=== PATIENT | female | born 1995 | race American Indian/Alaskan Native ===

== ENCOUNTER 2022-05-11 23:45 | Emergency (ER) | payer SELFPAY ==
--- NOTE | 2022-05-12 04:39 | Emergency Department Report ---
ED General Adult HPI - General Chief complaint: Back Pain/Injury Stated complaint: LUNG PAIN/TROUBLE BREATHING Time Seen by Provider: 05/12/22 03:59 Source: patient Mode of arrival: Ambulatory Limitations: No Limitations - History of Present Illness Initial comments: 26-year-old female presents emerged department complaining of a few day history of pain to the back when she takes a deep breath. Reports no trauma, no fever, chills, sweats. No hemoptysis no hematemesis hematochezia Ventricular female asthma department complaining of pain to the back when she takes a deep breath is been present for the last few days. Ports no fever, chills, sweats. No hemoptysis no hematemesis hematochezia -: Gradual Radiation: non-radiation Quality: dull Consistency: constant Associated Symptoms: denies other symptoms. denies: diaphoresis, fever/chills, headaches, malaise, nausea/vomiting, rash, shortness of breath - Related Data Previous Rx's Medication Instructions Recorded Last Taken Type Ketorolac [Toradol] 10 mg PO Q6H PRN #15 tablet 05/12/22 Unknown Rx Allergies Allergy/AdvReac Type Severity Reaction Status Date / Time No Known Allergies Allergy Unverified 05/12/22 00:15 ED Review of Systems ROS: Stated complaint: LUNG PAIN/TROUBLE BREATHING Other details as noted in HPI Comment: All other systems reviewed and negative ED Past Medical Hx - Medications Home Medications: Home Medications Medication Instructions Recorded Confirmed Last Taken Type Ketorolac [Toradol] 10 mg PO Q6H PRN #15 tablet 05/12/22 Unknown Rx ED Physical Exam - General Limitations: No Limitations General appearance: alert, in no apparent distress - Head Head exam: Present: atraumatic, normocephalic - Eye Eye exam: Present: normal appearance, PERRL Pupils: Present: normal accommodation - ENT ENT exam: Present: normal exam, mucous membranes moist - Neck Neck exam: Present: normal inspection, full ROM - Respiratory Respiratory exam: Present: normal lung sounds bilaterally. Absent: respiratory distress, wheezes, rales, rhonchi - Cardiovascular Cardiovascular Exam: Present: regular rate, normal rhythm. Absent: systolic murmur, diastolic murmur, rubs, gallop - GI/Abdominal GI/Abdominal exam: Present: soft, normal bowel sounds - Extremities Exam Extremities exam: Present: normal inspection - Back Exam Back exam: Present: normal inspection - Neurological Exam Neurological exam: Present: alert, oriented X3 - Psychiatric Psychiatric exam: Present: normal affect, normal mood - Skin Skin exam: Present: warm, dry, intact, normal color. Absent: rash ED Course Vital Signs 05/11/22 05/12/22 05/12/22 23:56 03:14 05:41 Temperature 98.7 F Pulse Rate 53 L 90 86 Respiratory 18 16 12 Rate Blood Pressure 133/85 Blood Pressure 137/84 [Left] O2 Sat by Pulse 96 98 100 Oximetry ED Medical Decision Making - Radiology Data Radiology results: report reviewed [facility] [address] [place] [address] XRay Report Signed Patient: CONCETTA CHING MR#: [id number] : 1995 Acct:[id number] Age/Sex: 26 / F ADM Date: 05/11/22 Loc: ED Attending Dr: Ordering Physician: CONY OGDEN Date of Service: 05/12/22 Procedure(s): XR chest routine 2V Accession Number(s): [id number] cc: CONY OGDEN Fluoro Time In Minutes: XR chest routine 2V INDICATION / CLINICAL INFORMATION: pain. COMPARISON: None available. FINDINGS: SUPPORT DEVICES: None. HEART /PULMONARY VASCULATURE: No significant abnormality. LUNGS / PLEURA: No significant pulmonary or pleural abnormality. No pneumothorax. ADDITIONAL FINDINGS: No significant additional findings. IMPRESSION: 1. No acute findings. Signer Name: Melvina Smyth MD Signed: 05/12/2022 4:54 AM Workstation Name: [id number] Transcribed By: PEYTON Dictated By: MELVINA SMYTH MD Electronically Authenticated By: MELVINA SMYTH MD Signed Date/Time: 05/12/22453 DD/ 2 TD/TT: Critical care attestation.: If time is entered above; I have spent that time in minutes in the direct care of this critically ill patient, excluding procedure time. ED Disposition Clinical Impression: Back pain Disposition: 01 HOME / SELF CARE / HOMELESS Is pt being admited?: No Does the pt Need Aspirin: No Condition: Stable Instructions: Acute Back Pain, Adult, Pleurisy Prescriptions: Ketorolac [Toradol] 10 mg PO Q6H PRN #15 tablet PRN Reason: Pain Referrals: GUERA ANGULO MD [Primary Care Provider] - 3-5 Days
--- NOTE | 2022-05-12 04:58 | XRay Report ---
XR chest routine 2V INDICATION / CLINICAL INFORMATION: pain. COMPARISON: None available. FINDINGS: SUPPORT DEVICES: None. HEART /PULMONARY VASCULATURE: No significant abnormality. LUNGS / PLEURA: No significant pulmonary or pleural abnormality. No pneumothorax. ADDITIONAL FINDINGS: No significant additional findings. IMPRESSION: 1. No acute findings. Signer Name: Uzair Smyth MD Signed: 05/12/2022 4:54 AM Workstation Name: [place] [id number]
[2022-05-12 05:41] VITALS: BP 137/84
== END 2022-05-12 05:42 | disposition home or self-care (01) ==
LOC: ED 23:45
DX: M54.9 Dorsalgia, unspecified (principal)
CPT/HCPCS: 71046; 99283